=== PATIENT | female | born 1935 | race Caucasian/White ===

== ENCOUNTER 2020-08-28 10:13 | Emergency (ER) | payer BC, OTHER ==
[~2020-08-28] VITALS: Ht 162.6 cm; Wt 51.3 kg
[2020-08-28] MEDS ORDERED: TDAP [DIPH/PERTUSSIS/TET] 0.5 ML VIAL IM ONE (10:50)
[2020-08-28] MEDS: TDAP [DIPH/PERTUSSIS/TET] 0.5 ML VIAL IM ONE (11:00)
--- NOTE | 2020-08-28 13:12 | NUR ---
-Patient alert oriented non distress. D/C intructions given, Agree to follow up with PMD, [facility] [phone] spoke to [facility] made aware patient is going back to facility. Room 205
--- NOTE | 2020-08-28 13:15 | NUR ---
Waiting for ambulance to d/c home.
--- NOTE | 2020-08-28 15:32 | NUR ---
CALLED [facility] 170 ETA
[2020-08-28 18:18] VITALS: BP 123/67
== END 2020-08-28 18:18 | disposition home or self-care (01) ==
LOC: ER 10:24
DX: S01.511A Laceration without foreign body of lip, initial encounter (principal); R51.9 Headache, unspecified; I10 Essential (primary) hypertension; Z96.649 Presence of unspecified artificial hip joint; Z88.2 Allergy status to sulfonamides; Z88.8 Allergy status to other drugs, medicaments and biological substances; Z88.1 Allergy status to other antibiotic agents; Z60.2 Problems related to living alone; W01.0XXA Fall on same level from slipping, tripping and stumbling without subsequent striking against object, initial encounter; Y93.89 Activity, other specified; Y92.091 Bathroom in other non-institutional residence as the place of occurrence of the external cause; Y99.8 Other external cause status
CPT/HCPCS: 70450-TC; 72125-TC; 90715